=== PATIENT | female | born 1935 | race Caucasian/White ===

== ENCOUNTER 2016-09-16 12:31 | Outpatient (CLI) | payer OTHER ==
[2015-12-05 12:31] VITALS: BMI 44.9
[~2016-09-16 12:31] MED LIST: ALLO100T PO; ARI1 PO; ASPI-1063 PO; ASPI81TA2 PO; ATOR40TA68 PO; CALC-507 PO; CITR15SO PO; DENOSUMAB IM; DILT180C69 PO; DOXE1CAP PO; FURO80TA3 PO; FURO80TA86 PO; GABA-531 PO; HYDR1TAB4 PO; INSU100V9 SQ; INSU100V9 SUBCUT; IRON1CAP17 PO; LEVO175T2 PO; LORA-258 PO; LYR50 PO; MULT-1164 PO; OMEP20CA10 PO; OMEP20CA4 PO; PARI1CAP3 PO; PYRI100T2 PO; RALO60TA PO; SSNOVOLOG SUBCUT; [UNRECOGNIZED DRUG - OTHER] IM; [UNRECOGNIZED DRUG - OTHER] PO
[2017-02-18] MEDS ORDERED: VANC125C10 PO ×2 (07:54→18:57)
[2017-02-18] MEDS ORDERED: INSU100V11 SUBCUT (07:54)
[2017-02-18] MEDS ORDERED: INSU100V11 SQ (18:56)
== END 2016-09-16 19:56 | disposition home or self-care (01) ==
LOC: SRD 12:31
DX: M47.894 Other spondylosis, thoracic region (principal); I51.7 Cardiomegaly; I70.90 Unspecified atherosclerosis
CPT/HCPCS: 72072-TC

== ENCOUNTER 2017-02-08 16:07 | Inpatient (IN) | payer OTHER ==
[~2017-02-08] VITALS: Ht 152.4 cm; Wt 88.9 kg
[~2017-02-08 16:07] MED LIST changes: -ALLO100T PO; -ASPI-1063 PO; -DOXE1CAP PO; -FURO80TA86 PO; -INSU100V9 SQ; -LYR50 PO; -OMEP20CA4 PO; -RALO60TA PO; -[UNRECOGNIZED DRUG - OTHER] PO
[2017-02-08 16:10] VITALS: BP_SYST 182
[2017-02-08] MEDS ORDERED: ONDANSETRON HCL 4 MG/2 ML VIAL IVP ONE ×3 (16:15→18:30)
[2017-02-08 16:57] LABS: BASOPHILS # (AUTO) 0.2 K/uL (0.0-0.2); BASOPHILS % (AUTO) 1.2 % (0.0-2.0); HEMOGLOBIN 11.8 g/dL (12.0-16.0); LYMPHOCYTES # (AUTO) 0.7 K/uL (1.0-5.5); LYMPHOCYTES % (AUTO) 3.8 % (20.5-51.5); MEAN CORPUSCULAR HEMOGLOBIN 31 pg (27-31); MEAN CORPUSCULAR HGB CONC 33 % (32-36); MEAN CORPUSCULAR VOLUME 93 fL (79.0-98.0); MONOCYTES # (AUTO) 0.5 K/uL (0.0-1.0); MONOCYTES % (AUTO) 2.6 % (1.7-9.3); NEUTROPHILS # (AUTO) 16.7 K/uL (1.8-7.7); NEUTROPHILS % (AUTO) 92.4 % (40.0-70.0); PLATELET COUNT (AUTO) 267 K/uL (130-430); RED BLOOD CELL COUNT(AUTO) 3.88 MIL/uL (4.2-6.2); WHITE BLOOD COUNT (AUTO) 18.1 K/uL (4.8-10.8)
[2017-02-08 17:12] LABS: PROTHROMBIN TIME 11.2 SECS (9.5-12.5)
[2017-02-08 17:13] LABS: ANION GAP 14 (5-15); CALCIUM 10.7 mg/dL (8.4-11.0); CHLORIDE 99 mmol/L (98-107); CREATININE 2.85 mg/dL (0.55-1.30); POTASSIUM 4.4 mmol/L (3.5-5.1); SODIUM SERUM 137 mmol/L (136-145); UREA NITROGEN, BLOOD 51 mg/dL (8-21)
[2017-02-08 17:17] LABS: GLUCOSE 471 mg/dL (70-99)
[2017-02-08 17:24] LABS: ASPARTATE AMINOTRANSFERASE 19 U/L (10-37)
[2017-02-08 17:25] LABS: ALANINE AMINOTRANSFERASE 17 U/L (12-78); ALBUMIN 3.7 g/dL (3.4-4.8); TOTAL PROTEIN, SERUM 7.5 g/dL (6.4-8.3)
[2017-02-08] MEDS ORDERED: cefTRIAXone 1 GM IVPB PREMIX 50 ML IV ONE (17:45)
[2017-02-08] MEDS ORDERED: INSULIN REGULAR, HUMAN 10 UNITS/0.1 ML INJ IVP ONE (18:00)
[2017-02-08 18:02] LABS: BILIRUBIN,URINE NEGATIVE (NEGATIVE); BLOOD, URINE 2+ (NEGATIVE); CLARITY/URINE SL HAZY (CLEAR); COLOR,URINE YELLOW (YELLOW); GLUCOSE,URINE 3+ (NEGATIVE); KETONES,URINE 1+ (NEGATIVE); LEUKOCYTE ESTERASE ,URINE NEGATIVE (NEGATIVE); NITRITE, URINE NEGATIVE (NEGATIVE); PROTEIN URINE 3+ (NEGATIVE); UROBILINOGEN,URINE 0.2 (0.2-1.0)
[2017-02-08 18:12] LABS: BACTERIA,URINE MANY /HPF (None Seen); RBC,URINE 0-3 /HPF (0-3); WBC,URINE 50-80 /HPF (0-3)
[2017-02-08 18:13] LABS: MUCUS,URINE None Seen /LPF (None Seen); URINE AMORPHOUS URATE 1+ /HPF (None Seen)
[2017-02-08] MEDS ORDERED: ACETAMINOPHEN 325 MG TABLET PO PRN (19:45)
[2017-02-08 21:09] VITALS: BP_SYST 182
[2017-02-08] MEDS ORDERED: INSULIN ASPART 100 UNITS/ML, 10 ML VIAL SUBCUT ONE (23:30)
[2017-02-08] MEDS ORDERED: FUROSEMIDE 80 MG TABLET PO SCH (23:30)
[2017-02-08] MEDS ORDERED: GABAPENTIN 300 MG CAPSULE PO ONE (23:45)
[2017-02-08] MEDS ORDERED: DILTIAZEM HCL 180 MG CAP.SR.24H PO ONE (23:45)
[2017-02-09] MEDS: ONDANSETRON HCL 4 MG/2 ML VIAL IVP PRN ×3 (02:09→19:43)
[2017-02-09 02:14] VITALS: BP_SYST 158
[2017-02-09] MEDS: cloNIDine HCL 0.1 MG TABLET PO PRN (05:10)
[2017-02-09] MEDS: INSULIN ASPART 100 UNITS/ML, 10 ML VIAL (NovoLOG) SUBCUT PRN ×3 (06:15→22:00)
[2017-02-09 07:00] LABS: BASOPHILS # (AUTO) 0.3 K/uL (0.0-0.2); HEMATOCRIT 37.6 % (36-48); HEMOGLOBIN 12.3 g/dL (12.0-16.0); LYMPHOCYTES # (AUTO) 0.6 K/uL (1.0-5.5); LYMPHOCYTES % (AUTO) 4.4 % (20.5-51.5); MEAN CORPUSCULAR HEMOGLOBIN 31 pg (27-31); MEAN CORPUSCULAR HGB CONC 33 % (32-36); MEAN CORPUSCULAR VOLUME 94 fL (79.0-98.0); MONOCYTES % (AUTO) 7.2 % (1.7-9.3); NEUTROPHILS # (AUTO) 11.5 K/uL (1.8-7.7); NEUTROPHILS % (AUTO) 86.4 % (40.0-70.0); PLATELET COUNT (AUTO) 296 K/uL (130-430); RED BLOOD CELL COUNT(AUTO) 4.01 MIL/uL (4.2-6.2); RED CELL DISTRIBUTION WIDTH 14.2 % (9.0-15.0); WHITE BLOOD COUNT (AUTO) 13.4 K/uL (4.8-10.8)
[2017-02-09 07:20] LABS: ALANINE AMINOTRANSFERASE 16 U/L (12-78); ALBUMIN 3.3 g/dL (3.4-4.8); ANION GAP 8 (5-15); ASPARTATE AMINOTRANSFERASE 19 U/L (10-37); CALCIUM 10.3 mg/dL (8.4-11.0); CHLORIDE 104 mmol/L (98-107); CREATININE 2.96 mg/dL (0.55-1.30); GLUCOSE 305 mg/dL (70-99); POTASSIUM 4.1 mmol/L (3.5-5.1); SODIUM SERUM 142 mmol/L (136-145); TOTAL BILIRUBIN 0.6 mg/dL (0.0-1.0); TOTAL PROTEIN, SERUM 7.1 g/dL (6.4-8.3); UREA NITROGEN, BLOOD 54 mg/dL (8-21)
[2017-02-09 08:00] VITALS: BP_SYST 133
[2017-02-09] MEDS ORDERED: NON-FORMULARY MEDICATION (Levothyroxine Sodium (Synthroid) 175 MCG) PO SCH (09:00)
[2017-02-09] MEDS ORDERED: CITRIC ACID/SODIUM CITRATE 30 ML UDC PO SCH (09:00)
[2017-02-09] MEDS ORDERED: [UNRECOGNIZED DRUG - MIXTURE] PO SCH (09:00)
[2017-02-09] MEDS: GABAPENTIN 300 MG CAPSULE PO SCH ×2 (10:15→21:10)
[2017-02-09] MEDS: ANASTROZOLE 1 MG TABLET (ARIMIDEX) PO SCH (10:15)
[2017-02-09] MEDS: ASPIRIN 81 MG TAB.CHEW PO SCH (10:15)
[2017-02-09] MEDS: LEVOTHYROXINE SODIUM 0.075 MG TABLET PO SCH (10:15)
[2017-02-09] MEDS: LEVOTHYROXINE SODIUM 0.1 MG TABLET PO SCH (10:15)
[2017-02-09] MEDS: ATORVASTATIN 20 MG TABLET PO SCH (10:16)
[2017-02-09 12:00] VITALS: BP_SYST 130
[2017-02-09 16:00] VITALS: BP_SYST 151
[2017-02-09] MEDS ORDERED: LACTOBACILLUS RHAMNOSUS GG 1 CAP CAPSULE PO ONE (16:15)
[2017-02-09] MEDS ORDERED: TOBR5DRO48 OP (17:50)
[2017-02-09 19:40] VITALS: BP_SYST 194
[2017-02-09] MEDS: cefTRIAXone 1 GM IVPB PREMIX 50 ML IV SCH (21:10)
[2017-02-09] MEDS: metroNIDAZOLE 500 MG TABLET PO SCH (21:10)
[2017-02-09] MEDS: LACTOBACILLUS RHAMNOSUS GG 1 CAP CAPSULE PO SCH (21:11)
[2017-02-09] MEDS: DILTIAZEM HCL 180 MG CAP.SR.24H PO SCH (21:11)
[2017-02-09] MEDS: PROMETHAZINE HCL 25 MG/ML AMP IVP PRN (22:06)
[2017-02-10] MEDS: cloNIDine HCL 0.1 MG TABLET PO PRN (00:17)
[2017-02-10] MEDS: LORazepam 1 MG TABLET PO PRN (00:17)
[2017-02-10] MEDS: PROMETHAZINE HCL 25 MG/ML AMP IVP PRN ×3 (00:23→06:25)
[2017-02-10 01:26] VITALS: BP_SYST 192
[2017-02-10 03:37] VITALS: BP_SYST 166
[2017-02-10] MEDS: metroNIDAZOLE 500 MG TABLET PO SCH ×3 (06:24→22:25)
[2017-02-10] MEDS: LEVOTHYROXINE SODIUM 0.075 MG TABLET PO SCH (06:25)
[2017-02-10] MEDS: LEVOTHYROXINE SODIUM 0.1 MG TABLET PO SCH (06:25)
[2017-02-10 08:00] VITALS: BP_SYST 154
[2017-02-10] MEDS: GABAPENTIN 300 MG CAPSULE PO SCH ×2 (08:56→22:26)
[2017-02-10] MEDS: ATORVASTATIN 20 MG TABLET PO SCH (08:56)
[2017-02-10] MEDS: ANASTROZOLE 1 MG TABLET (ARIMIDEX) PO SCH (08:56)
[2017-02-10] MEDS: LACTOBACILLUS RHAMNOSUS GG 1 CAP CAPSULE PO SCH ×2 (08:56→22:26)
[2017-02-10] MEDS: ASPIRIN 81 MG TAB.CHEW PO SCH (08:56)
[2017-02-10] MEDS: CALCIUM CARBONATE/VITAMIN D3 1 TAB TABLET PO SCH ×2 (08:57→22:26)
[2017-02-10] MEDS: INSULIN ASPART 100 UNITS/ML, 10 ML VIAL (NovoLOG) SUBCUT PRN ×2 (11:11→22:31)
[2017-02-10 12:37] VITALS: BP_SYST 159
[2017-02-10 16:52] VITALS: BP_SYST 148
[2017-02-10 20:00] VITALS: BP_SYST 159
[2017-02-10] MEDS: cefTRIAXone 1 GM IVPB PREMIX 50 ML IV SCH (22:24)
[2017-02-10] MEDS: DILTIAZEM HCL 180 MG CAP.SR.24H PO SCH (22:25)
[2017-02-11] VITALS (7 sets, daily range): BP systolic 142–191
[2017-02-11] MEDS: metroNIDAZOLE 500 MG TABLET PO SCH (06:26)
[2017-02-11] MEDS: LEVOTHYROXINE SODIUM 0.075 MG TABLET PO SCH (06:26)
[2017-02-11] MEDS: LEVOTHYROXINE SODIUM 0.1 MG TABLET PO SCH (06:26)
[2017-02-11] MEDS: LACTOBACILLUS RHAMNOSUS GG 1 CAP CAPSULE PO SCH ×2 (08:40→22:22)
[2017-02-11] MEDS: CALCIUM CARBONATE/VITAMIN D3 1 TAB TABLET PO SCH ×2 (08:40→22:22)
[2017-02-11] MEDS: ANASTROZOLE 1 MG TABLET (ARIMIDEX) PO SCH (08:40)
[2017-02-11] MEDS: ASPIRIN 81 MG TAB.CHEW PO SCH (08:40)
[2017-02-11] MEDS: ATORVASTATIN 20 MG TABLET PO SCH (08:40)
[2017-02-11] MEDS: GABAPENTIN 300 MG CAPSULE PO SCH ×2 (08:41→22:22)
[2017-02-11] MEDS: cloNIDine HCL 0.1 MG TABLET PO PRN (08:41)
[2017-02-11] MEDS: HYDROcodone/ACETAMIN 7.5-325 MG TAB PO PRN ×2 (11:32→22:32)
[2017-02-11] MEDS: INSULIN ASPART 100 UNITS/ML, 10 ML VIAL (NovoLOG) SUBCUT PRN ×2 (11:37→22:29)
[2017-02-11] MEDS: VANCOMYCIN HCL 125 MG CAPSULE PO SCH ×3 (14:26→22:22)
[2017-02-11] MEDS ORDERED: ACETAMINOPHEN 325 MG TABLET PO PRN (16:00)
[2017-02-11] MEDS: metroNIDAZOLE 250 mg/NS 50 ML IV SCH ×2 (17:23→23:49)
[2017-02-11] MEDS ORDERED: VANCOMYCIN HCL 1 GM/NS PREMIX 250 ML IV ONE (17:45)
[2017-02-11] MEDS: cefTRIAXone 1 GM IVPB PREMIX 50 ML IV SCH (22:19)
[2017-02-11] MEDS: DILTIAZEM HCL 180 MG CAP.SR.24H PO SCH (22:20)
[2017-02-11] MEDS: CITRIC ACID/SODIUM CITRATE 30 ML UDC PO SCH (22:21)
[2017-02-12] VITALS (7 sets, daily range): BP systolic 142–186
[2017-02-12] MEDS: cloNIDine HCL 0.1 MG TABLET PO PRN ×2 (00:28→15:18)
[2017-02-12] MEDS: LEVOTHYROXINE SODIUM 0.1 MG TABLET PO SCH (06:08)
[2017-02-12] MEDS: LEVOTHYROXINE SODIUM 0.075 MG TABLET PO SCH (06:08)
[2017-02-12] MEDS: metroNIDAZOLE 250 mg/NS 50 ML IV SCH ×3 (06:09→22:38)
[2017-02-12] MEDS: INSULIN ASPART 100 UNITS/ML, 10 ML VIAL (NovoLOG) SUBCUT PRN ×3 (06:11→21:18)
[2017-02-12 06:33] LABS: BASOPHILS # (AUTO) 0.1 K/uL (0.0-0.2); EOSINOPHILS # (AUTO) 0.2 K/uL (0.0-0.4); LYMPHOCYTES # (AUTO) 1.3 K/uL (1.0-5.5); MONOCYTES # (AUTO) 0.7 K/uL (0.0-1.0)
[2017-02-12 06:44] LABS: BASOPHILS % (AUTO) 1.5 % (0.0-2.0); EOSINOPHILS % (AUTO) 2.5 % (0.0-4.0); HEMATOCRIT 32.3 % (36-48); HEMOGLOBIN 10.6 g/dL (12.0-16.0); LYMPHOCYTES % (AUTO) 15.5 % (20.5-51.5); MEAN CORPUSCULAR HEMOGLOBIN 30 pg (27-31); MEAN CORPUSCULAR HGB CONC 33 % (32-36); MEAN CORPUSCULAR VOLUME 92 fL (79.0-98.0); MONOCYTES % (AUTO) 8.8 % (1.7-9.3); NEUTROPHILS # (AUTO) 5.8 K/uL (1.8-7.7); NEUTROPHILS % (AUTO) 71.7 % (40.0-70.0); PLATELET COUNT (AUTO) 188 K/uL (130-430); RED BLOOD CELL COUNT(AUTO) 3.51 MIL/uL (4.2-6.2); RED CELL DISTRIBUTION WIDTH 13.2 % (9.0-15.0); WHITE BLOOD COUNT (AUTO) 8.1 K/uL (4.8-10.8)
[2017-02-12 06:47] LABS: ANION GAP 1 (5-15); CALCIUM 9.7 mg/dL (8.4-11.0); CHLORIDE 108 mmol/L (98-107); CREATININE 2.35 mg/dL (0.55-1.30); GLUCOSE 233 mg/dL (70-99); POTASSIUM 4.4 mmol/L (3.5-5.1); SODIUM SERUM 142 mmol/L (136-145); UREA NITROGEN, BLOOD 46 mg/dL (8-21)
[2017-02-12] MEDS: GABAPENTIN 300 MG CAPSULE PO SCH ×2 (08:26→21:11)
[2017-02-12] MEDS: cloNIDine HCL 0.1 MG TABLET PO SCH ×2 (08:27→21:14)
[2017-02-12] MEDS: ATORVASTATIN 20 MG TABLET PO SCH (08:27)
[2017-02-12] MEDS: ANASTROZOLE 1 MG TABLET (ARIMIDEX) PO SCH (08:28)
[2017-02-12] MEDS: LACTOBACILLUS RHAMNOSUS GG 1 CAP CAPSULE PO SCH ×2 (08:28→21:11)
[2017-02-12] MEDS: ASPIRIN 81 MG TAB.CHEW PO SCH (08:28)
[2017-02-12] MEDS: FUROSEMIDE 80 MG TABLET PO SCH (08:28)
[2017-02-12] MEDS: CALCIUM CARBONATE/VITAMIN D3 1 TAB TABLET PO SCH ×2 (08:28→21:14)
[2017-02-12] MEDS: VANCOMYCIN HCL 125 MG CAPSULE PO SCH ×4 (08:28→21:29)
[2017-02-12] MEDS: CITRIC ACID/SODIUM CITRATE 30 ML UDC PO SCH ×3 (08:38→21:15)
[2017-02-12] MEDS: FERREX PO SCH (09:00)
[2017-02-12] MEDS: DILTIAZEM HCL 180 MG CAP.SR.24H PO SCH (21:12)
[2017-02-12] MEDS: HYDROcodone/ACETAMIN 7.5-325 MG TAB PO PRN (21:14)
[2017-02-13] VITALS (7 sets, daily range): BP systolic 111–173
[2017-02-13] MEDS: metroNIDAZOLE 250 mg/NS 50 ML IV SCH ×3 (06:14→21:25)
[2017-02-13] MEDS: LEVOTHYROXINE SODIUM 0.075 MG TABLET PO SCH (07:28)
[2017-02-13] MEDS: LEVOTHYROXINE SODIUM 0.1 MG TABLET PO SCH (07:30)
[2017-02-13] MEDS: VANCOMYCIN HCL 125 MG CAPSULE PO SCH ×4 (09:00→20:58)
[2017-02-13] MEDS: CITRIC ACID/SODIUM CITRATE 30 ML UDC PO SCH ×3 (09:00→20:57)
[2017-02-13] MEDS: FUROSEMIDE 80 MG TABLET PO SCH (09:27)
[2017-02-13] MEDS: ASPIRIN 81 MG TAB.CHEW PO SCH (09:27)
[2017-02-13] MEDS: ANASTROZOLE 1 MG TABLET (ARIMIDEX) PO SCH (09:27)
[2017-02-13] MEDS: cloNIDine HCL 0.1 MG TABLET PO SCH ×2 (09:27→20:58)
[2017-02-13] MEDS: GABAPENTIN 300 MG CAPSULE PO SCH ×2 (09:28→20:57)
[2017-02-13] MEDS: LACTOBACILLUS RHAMNOSUS GG 1 CAP CAPSULE PO SCH ×2 (09:28→20:57)
[2017-02-13] MEDS: ATORVASTATIN 20 MG TABLET PO SCH (09:28)
[2017-02-13] MEDS: CALCIUM CARBONATE/VITAMIN D3 1 TAB TABLET PO SCH ×2 (09:28→20:57)
[2017-02-13] MEDS: FERREX PO SCH (09:29)
[2017-02-13] MEDS: INSULIN ASPART 100 UNITS/ML, 10 ML VIAL (NovoLOG) SUBCUT PRN ×3 (14:09→21:04)
[2017-02-13] MEDS: DILTIAZEM HCL 180 MG CAP.SR.24H PO SCH (21:00)
[2017-02-14] MEDS: cloNIDine HCL 0.1 MG TABLET PO PRN (00:13)
[2017-02-14] MEDS: LORazepam 1 MG TABLET PO PRN (00:14)
[2017-02-14 04:47] VITALS: BP_SYST 155
[2017-02-14] MEDS: metroNIDAZOLE 250 mg/NS 50 ML IV SCH ×3 (05:49→21:53)
[2017-02-14] MEDS: LEVOTHYROXINE SODIUM 0.1 MG TABLET PO SCH (06:15)
[2017-02-14] MEDS: LEVOTHYROXINE SODIUM 0.075 MG TABLET PO SCH (06:15)
[2017-02-14 08:06] LABS: BASOPHILS % (AUTO) 0.5 % (0.0-2.0); EOSINOPHILS # (AUTO) 0.2 K/uL (0.0-0.4); HEMATOCRIT 32.4 % (36-48); HEMOGLOBIN 10.4 g/dL (12.0-16.0); LYMPHOCYTES % (AUTO) 11.1 % (20.5-51.5); MEAN CORPUSCULAR HEMOGLOBIN 30 pg (27-31); MEAN CORPUSCULAR HGB CONC 32 % (32-36); MEAN CORPUSCULAR VOLUME 93 fL (79.0-98.0); MONOCYTES # (AUTO) 0.8 K/uL (0.0-1.0); MONOCYTES % (AUTO) 8.8 % (1.7-9.3); NEUTROPHILS # (AUTO) 7.2 K/uL (1.8-7.7); NEUTROPHILS % (AUTO) 77.6 % (40.0-70.0); PLATELET COUNT (AUTO) 156 K/uL (130-430); RED CELL DISTRIBUTION WIDTH 13.3 % (9.0-15.0); WHITE BLOOD COUNT (AUTO) 9.2 K/uL (4.8-10.8)
[2017-02-14 08:07] LABS: ANION GAP 1 (5-15); CALCIUM 10.3 mg/dL (8.4-11.0); CHLORIDE 102 mmol/L (98-107); GLUCOSE 112 mg/dL (70-99); POTASSIUM 3.4 mmol/L (3.5-5.1); SODIUM SERUM 140 mmol/L (136-145); UREA NITROGEN, BLOOD 37 mg/dL (8-21)
[2017-02-14] MEDS: FERREX PO SCH (09:00)
[2017-02-14] MEDS: CITRIC ACID/SODIUM CITRATE 30 ML UDC PO SCH ×3 (09:02→21:52)
[2017-02-14] MEDS: ANASTROZOLE 1 MG TABLET (ARIMIDEX) PO SCH (09:02)
[2017-02-14] MEDS: CALCIUM CARBONATE/VITAMIN D3 1 TAB TABLET PO SCH ×2 (09:03→21:38)
[2017-02-14] MEDS: cloNIDine HCL 0.1 MG TABLET PO SCH ×2 (09:03→21:37)
[2017-02-14] MEDS: FUROSEMIDE 80 MG TABLET PO SCH (09:03)
[2017-02-14] MEDS: ASPIRIN 81 MG TAB.CHEW PO SCH (09:03)
[2017-02-14] MEDS: GABAPENTIN 300 MG CAPSULE PO SCH ×2 (09:03→21:37)
[2017-02-14] MEDS: LACTOBACILLUS RHAMNOSUS GG 1 CAP CAPSULE PO SCH ×2 (09:03→21:37)
[2017-02-14] MEDS: VANCOMYCIN HCL 125 MG CAPSULE PO SCH ×4 (09:04→21:52)
[2017-02-14] MEDS: ATORVASTATIN 20 MG TABLET PO SCH (09:04)
[2017-02-14 09:33] VITALS: BP_SYST 135
[2017-02-14] MEDS: INSULIN ASPART 100 UNITS/ML, 10 ML VIAL (NovoLOG) SUBCUT PRN ×2 (11:45→17:48)
[2017-02-14 12:09] VITALS: BP_SYST 149
[2017-02-14 16:05] VITALS: BP_SYST 138
[2017-02-14 20:00] VITALS: BP_SYST 177
[2017-02-14] MEDS: DILTIAZEM HCL 180 MG CAP.SR.24H PO SCH (21:38)
[2017-02-14] MEDS: HYDROcodone/ACETAMIN 7.5-325 MG TAB PO PRN (22:40)
[2017-02-15] VITALS (7 sets, daily range): BP systolic 111–180
[2017-02-15] MEDS: cloNIDine HCL 0.1 MG TABLET PO PRN (04:19)
[2017-02-15] MEDS: metroNIDAZOLE 250 mg/NS 50 ML IV SCH (05:12)
[2017-02-15] MEDS: INSULIN ASPART 100 UNITS/ML, 10 ML VIAL (NovoLOG) SUBCUT PRN ×2 (06:47→11:52)
[2017-02-15] MEDS: LEVOTHYROXINE SODIUM 0.1 MG TABLET PO SCH (07:00)
[2017-02-15] MEDS: LEVOTHYROXINE SODIUM 0.075 MG TABLET PO SCH (07:00)
[2017-02-15] MEDS: HYDROcodone/ACETAMIN 7.5-325 MG TAB PO PRN (07:02)
[2017-02-15] MEDS: CITRIC ACID/SODIUM CITRATE 30 ML UDC PO SCH ×2 (09:00→15:17)
[2017-02-15] MEDS: LACTOBACILLUS RHAMNOSUS GG 1 CAP CAPSULE PO SCH (11:04)
[2017-02-15] MEDS: GABAPENTIN 300 MG CAPSULE PO SCH (11:05)
[2017-02-15] MEDS: FUROSEMIDE 80 MG TABLET PO SCH (11:05)
[2017-02-15] MEDS: CALCIUM CARBONATE/VITAMIN D3 1 TAB TABLET PO SCH (11:05)
[2017-02-15] MEDS: ATORVASTATIN 20 MG TABLET PO SCH (11:05)
[2017-02-15] MEDS: VANCOMYCIN HCL 125 MG CAPSULE PO SCH (11:07)
[2017-02-15] MEDS: cloNIDine HCL 0.1 MG TABLET PO SCH (11:07)
[2017-02-15] MEDS: ASPIRIN 81 MG TAB.CHEW PO SCH (11:07)
[2017-02-15] MEDS: ANASTROZOLE 1 MG TABLET (ARIMIDEX) PO SCH (11:08)
[2017-02-15] MEDS: FERREX PO SCH (11:12)
[2017-02-15] MEDS ORDERED: KCL 20 mEq in 100 mL (PREMIX) 100 ML IV ONE (15:00)
[2017-02-15] MEDS: PROMETHAZINE HCL 25 MG/ML AMP IVP PRN (19:48)
[2017-02-15] MEDS ORDERED: LINEZOLID 300 ML IV SCH (21:00)
[2017-02-18] MEDS ORDERED: VANC125C10 PO ×2 (07:54→18:57)
[2017-02-18] MEDS ORDERED: INSU100V11 SUBCUT (07:54)
[2017-02-18] MEDS ORDERED: INSU100V11 SQ (18:56)
== END 2017-02-15 21:00 | disposition home or self-care (01) | DRG 372 ==
LOC: SED 16:07 → SMU 19:34
PROVIDERS: ADMIT Internal Medicine; ATTEND Internal Medicine
DX: A04.7 Enterocolitis due to Clostridium difficile (principal); N12 Tubulo-interstitial nephritis, not specified as acute or chronic; N17.9 Acute kidney failure, unspecified; H54.41 Blindness, right eye, normal vision left eye; E03.9 Hypothyroidism, unspecified; I12.9 Hypertensive chronic kidney disease with stage 1 through stage 4 chronic kidney disease, or unspecified chronic kidney disease; E11.22 Type 2 diabetes mellitus with diabetic chronic kidney disease; N18.3 Chronic kidney disease, stage 3 (moderate); B95.62 Methicillin resistant Staphylococcus aureus infection as the cause of diseases classified elsewhere; E66.01 Morbid (severe) obesity due to excess calories; Z88.1 Allergy status to other antibiotic agents; Z88.5 Allergy status to narcotic agent; Z88.2 Allergy status to sulfonamides; Z88.8 Allergy status to other drugs, medicaments and biological substances; Z79.899 Other long term (current) drug therapy; Z79.82 Long term (current) use of aspirin; Z79.4 Long term (current) use of insulin; Z85.3 Personal history of malignant neoplasm of breast; Z86.73 Personal history of transient ischemic attack (TIA), and cerebral infarction without residual deficits; Z68.38 Body mass index [BMI] 38.0-38.9, adult; Z90.11 Acquired absence of right breast and nipple; E11.65 Type 2 diabetes mellitus with hyperglycemia
CPT/HCPCS: 36415; 71010; 80048; 80053; 81000-TC; 82962; 83880; 84484; 85025; 85610-TC; 85730-TC; 87086; 87186-TC; 87230-TC; 93005; 96365; 96367; 96375; 99285; J0696; J1815; J1956; J2020; J2405; J2550; J3370; J3490; J7050

== ENCOUNTER 2017-03-01 08:16 | Inpatient (IN) | payer OTHER ==
[~2017-03-01] VITALS: Ht 160 cm; Wt 111.6 kg
[~2017-03-01 08:16] MED LIST changes: +INSU100V11 SQ; -INSU100V9 SUBCUT; +TOBR5DRO48 OP; +VANC125C10 PO
[2017-03-01 08:20] VITALS: BP_SYST 129
[2017-03-01] MEDS ORDERED: NACL 0.9% 1,000 ML IV ONE (09:00)
[2017-03-01 09:24] LABS: BASOPHILS # (AUTO) 0.1 K/uL (0.0-0.2); BASOPHILS % (AUTO) 0.6 % (0.0-2.0); EOSINOPHILS # (AUTO) 0.1 K/uL (0.0-0.4); EOSINOPHILS % (AUTO) 0.6 % (0.0-4.0); HEMATOCRIT 33.7 % (36-48); HEMOGLOBIN 10.9 g/dL (12.0-16.0); LYMPHOCYTES # (AUTO) 0.6 K/uL (1.0-5.5); LYMPHOCYTES % (AUTO) 6.3 % (20.5-51.5); MEAN CORPUSCULAR HEMOGLOBIN 31 pg (27-31); MEAN CORPUSCULAR HGB CONC 32 % (32-36); MEAN CORPUSCULAR VOLUME 95 fL (79.0-98.0); MONOCYTES # (AUTO) 0.3 K/uL (0.0-1.0); MONOCYTES % (AUTO) 3.2 % (1.7-9.3); NEUTROPHILS # (AUTO) 7.7 K/uL (1.8-7.7); NEUTROPHILS % (AUTO) 89.3 % (40.0-70.0); PLATELET COUNT (AUTO) 238 K/uL (130-430); RED BLOOD CELL COUNT(AUTO) 3.56 MIL/uL (4.2-6.2); RED CELL DISTRIBUTION WIDTH 13.2 % (9.0-15.0); WHITE BLOOD COUNT (AUTO) 8.8 K/uL (4.8-10.8)
[2017-03-01 09:37] LABS: ANION GAP 15 (5-15); CALCIUM 9.5 mg/dL (8.4-11.0); CHLORIDE 88 mmol/L (98-107); CREATININE 2.67 mg/dL (0.55-1.30); POTASSIUM 4.5 mmol/L (3.5-5.1); PROTHROMBIN TIME 11.1 SECS (9.5-12.5); SODIUM SERUM 131 mmol/L (136-145); UREA NITROGEN, BLOOD 43 mg/dL (8-21)
[2017-03-01 09:39] LABS: ALANINE AMINOTRANSFERASE 14 U/L (12-78); ALBUMIN 2.8 g/dL (3.4-4.8); ASPARTATE AMINOTRANSFERASE 14 U/L (10-37); TOTAL BILIRUBIN 0.8 mg/dL (0.0-1.0); TOTAL PROTEIN, SERUM 6.6 g/dL (6.4-8.3)
[2017-03-01 09:56] LABS: GLUCOSE 794 mg/dL (70-99)
[2017-03-01 10:53] LABS: BILIRUBIN,URINE NEGATIVE (NEGATIVE); BLOOD, URINE 1+ (NEGATIVE); CLARITY/URINE HAZY (CLEAR); COLOR,URINE YELLOW (YELLOW); GLUCOSE,URINE 3+ (NEGATIVE); KETONES,URINE 1+ (NEGATIVE); LEUKOCYTE ESTERASE ,URINE NEGATIVE (NEGATIVE); NITRITE, URINE NEGATIVE (NEGATIVE); PH,URINE 5.5 (5.0-8.0); PROTEIN URINE 2+ (NEGATIVE); UROBILINOGEN,URINE 0.2 (0.2-1.0)
[2017-03-01 11:02] LABS: BACTERIA,URINE FEW /HPF (None Seen); RBC,URINE 0-3 /HPF (0-3); WBC,URINE 0-3 /HPF (0-3); YEAST,URINE Many /HPF (None Seen)
[2017-03-01 11:03] LABS: MUCUS,URINE None Seen /LPF (None Seen)
[2017-03-01 11:59] VITALS: BP_SYST 107
[2017-03-01] MEDS ORDERED: INSULIN REGULAR, HUMAN 100 UNITS/ML, 10 ML VIAL SUBCUT ONE ×2 (12:00→19:00)
[2017-03-01] MEDS ORDERED: DEXTROSE 50% JECT 50 ML DISP.SYRIN IVP PRN (12:00)
[2017-03-01] MEDS ORDERED: INSULIN REGULAR, HUMAN 100 UNITS/ML, 10 ML VIAL (novoLIN R) SUBCUT PRN ×2 (12:00→18:45)
[2017-03-01] MEDS: VANCOMYCIN HCL 125 MG CAPSULE PO SCH ×6 (13:00→20:16)
[2017-03-01] MEDS: NACL 0.9% 1,000 ML IV SCH ×2 (16:00→20:31)
[2017-03-01] MEDS: OMEPRAZOLE 20 MG CAPSULE.DR (PriLOSEC) PO SCH ×2 (16:00→17:00)
[2017-03-01 16:34] VITALS: BP_SYST 132
[2017-03-01 19:35] VITALS: BP_SYST 142
[2017-03-01] MEDS: DILTIAZEM HCL 180 MG CAP.SR.24H PO SCH (20:16)
[2017-03-02] VITALS: BP_SYST 138
[2017-03-02 04:22] VITALS: BP_SYST 141
[2017-03-02] MEDS: OMEPRAZOLE 20 MG CAPSULE.DR (PriLOSEC) PO SCH ×2 (05:40→18:13)
[2017-03-02 08:00] VITALS: BP_SYST 136
[2017-03-02] MEDS ORDERED: FUROSEMIDE 80 MG TABLET PO SCH (09:00)
[2017-03-02] MEDS: ATORVASTATIN 20 MG TABLET PO SCH (10:30)
[2017-03-02] MEDS: VANCOMYCIN HCL 125 MG CAPSULE PO SCH ×4 (10:31→21:28)
[2017-03-02] MEDS: ANASTROZOLE 1 MG TABLET (ARIMIDEX) PO SCH (10:31)
[2017-03-02] MEDS: ASPIRIN 81 MG TAB.CHEW PO SCH (10:31)
[2017-03-02] MEDS: GABAPENTIN 300 MG CAPSULE PO SCH (10:31)
[2017-03-02 11:40] VITALS: BP_SYST 188
[2017-03-02 11:41] LABS: BASOPHILS # (AUTO) 0.2 K/uL (0.0-0.2); BASOPHILS % (AUTO) 2.2 % (0.0-2.0); EOSINOPHILS # (AUTO) 0.1 K/uL (0.0-0.4); EOSINOPHILS % (AUTO) 1.1 % (0.0-4.0); HEMATOCRIT 30.5 % (36-48); HEMOGLOBIN 10.1 g/dL (12.0-16.0); LYMPHOCYTES % (AUTO) 12.3 % (20.5-51.5); MEAN CORPUSCULAR HEMOGLOBIN 31 pg (27-31); MEAN CORPUSCULAR HGB CONC 33 % (32-36); MEAN CORPUSCULAR VOLUME 93 fL (79.0-98.0); MONOCYTES # (AUTO) 0.4 K/uL (0.0-1.0); MONOCYTES % (AUTO) 5.4 % (1.7-9.3); NEUTROPHILS # (AUTO) 6.4 K/uL (1.8-7.7); PLATELET COUNT (AUTO) 248 K/uL (130-430); RED BLOOD CELL COUNT(AUTO) 3.28 MIL/uL (4.2-6.2); RED CELL DISTRIBUTION WIDTH 13.1 % (9.0-15.0); WHITE BLOOD COUNT (AUTO) 8.1 K/uL (4.8-10.8)
[2017-03-02 11:49] LABS: ANION GAP 6 (5-15); CALCIUM 9.1 mg/dL (8.4-11.0); CHLORIDE 96 mmol/L (98-107); CREATININE 2.77 mg/dL (0.55-1.30); GLUCOSE 240 mg/dL (70-99); SODIUM SERUM 137 mmol/L (136-145); UREA NITROGEN, BLOOD 45 mg/dL (8-21)
[2017-03-02 11:54] LABS: ALANINE AMINOTRANSFERASE 15 U/L (12-78); ALBUMIN 2.5 g/dL (3.4-4.8); ASPARTATE AMINOTRANSFERASE 19 U/L (10-37); TOTAL BILIRUBIN 0.4 mg/dL (0.0-1.0); TOTAL PROTEIN, SERUM 6.3 g/dL (6.4-8.3)
[2017-03-02] MEDS: LORazepam 1 MG TABLET PO PRN ×2 (12:33→23:41)
[2017-03-02] MEDS: NACL 0.9% 1,000 ML IV SCH (18:00)
[2017-03-02] MEDS ORDERED: INSULIN REGULAR, HUMAN 100 UNITS/ML, 10 ML VIAL (novoLIN R) SUBCUT PRN (19:45)
[2017-03-02] MEDS: D5NS 1,000 ML IV SCH (21:15)
[2017-03-02] MEDS: DILTIAZEM HCL 180 MG CAP.SR.24H PO SCH (21:28)
[2017-03-02 21:30] VITALS: BP_SYST 147
[2017-03-02] MEDS: HYDROcodone/ACETAMIN 7.5-325 MG TAB PO PRN (23:40)
[2017-03-03] VITALS (8 sets, daily range): BP systolic 129–192
[2017-03-03] MEDS: NACL 0.9% 1,000 ML IV SCH ×2 (04:00→14:00)
[2017-03-03] MEDS: OMEPRAZOLE 20 MG CAPSULE.DR (PriLOSEC) PO SCH ×2 (06:33→16:22)
[2017-03-03] MEDS: D5NS 1,000 ML IV SCH ×2 (06:33→17:15)
[2017-03-03] MEDS: cloNIDine HCL 0.1 MG TABLET PO PRN (08:48)
[2017-03-03] MEDS: ASPIRIN 81 MG TAB.CHEW PO SCH (09:00)
[2017-03-03] MEDS: ANASTROZOLE 1 MG TABLET (ARIMIDEX) PO SCH ×2 (09:00→13:06)
[2017-03-03] MEDS: VANCOMYCIN HCL 125 MG CAPSULE PO SCH ×4 (09:00→20:56)
[2017-03-03] MEDS: ATORVASTATIN 20 MG TABLET PO SCH (09:00)
[2017-03-03] MEDS: GABAPENTIN 300 MG CAPSULE PO SCH (09:00)
[2017-03-03] MEDS ORDERED: INSULIN REGULAR, HUMAN 100 UNITS/ML, 10 ML VIAL (novoLIN R) SUBCUT PRN (15:30)
[2017-03-03] MEDS ORDERED: FLUCONAZOLE 200 MG TABLET (DIFLUCAN) PO ONE (20:30)
[2017-03-03] MEDS: DILTIAZEM HCL 180 MG CAP.SR.24H PO SCH (20:55)
[2017-03-03] MEDS: HYDROcodone/ACETAMIN 7.5-325 MG TAB PO PRN (23:42)
[2017-03-04] MEDS: cloNIDine HCL 0.1 MG TABLET PO PRN (00:58)
[2017-03-04] MEDS: D5NS 1,000 ML IV SCH (03:15)
[2017-03-04 04:00] VITALS: BP_SYST 169
[2017-03-04] MEDS: HYDROcodone/ACETAMIN 7.5-325 MG TAB PO PRN (04:01)
[2017-03-04] MEDS: OMEPRAZOLE 20 MG CAPSULE.DR (PriLOSEC) PO SCH ×2 (06:13→17:01)
[2017-03-04] MEDS ORDERED: MORPHINE 2 MG/ML INJ. SYRINGE IVP PRN (07:00)
[2017-03-04] MEDS ORDERED: ONDANSETRON HCL 4 MG/2 ML VIAL IVP PRN (07:00)
[2017-03-04 07:07] LABS: BASOPHILS # (AUTO) 0.1 K/uL (0.0-0.2); BASOPHILS % (AUTO) 1.2 % (0.0-2.0); EOSINOPHILS # (AUTO) 0.3 K/uL (0.0-0.4); EOSINOPHILS % (AUTO) 4.1 % (0.0-4.0); HEMATOCRIT 30.4 % (36-48); HEMOGLOBIN 10.5 g/dL (12.0-16.0); LYMPHOCYTES # (AUTO) 1.2 K/uL (1.0-5.5); LYMPHOCYTES % (AUTO) 15.8 % (20.5-51.5); MEAN CORPUSCULAR HEMOGLOBIN 32 pg (27-31); MEAN CORPUSCULAR HGB CONC 34 % (32-36); MEAN CORPUSCULAR VOLUME 93 fL (79.0-98.0); MONOCYTES # (AUTO) 0.5 K/uL (0.0-1.0); MONOCYTES % (AUTO) 7.2 % (1.7-9.3); NEUTROPHILS # (AUTO) 5.4 K/uL (1.8-7.7); NEUTROPHILS % (AUTO) 71.7 % (40.0-70.0); PLATELET COUNT (AUTO) 270 K/uL (130-430); RED BLOOD CELL COUNT(AUTO) 3.27 MIL/uL (4.2-6.2); RED CELL DISTRIBUTION WIDTH 13.1 % (9.0-15.0); WHITE BLOOD COUNT (AUTO) 7.5 K/uL (4.8-10.8)
[2017-03-04 07:35] LABS: ALANINE AMINOTRANSFERASE 15 U/L (12-78); ALBUMIN 2.6 g/dL (3.4-4.8); ANION GAP 2 (5-15); ASPARTATE AMINOTRANSFERASE 19 U/L (10-37); CALCIUM 9.5 mg/dL (8.4-11.0); CHLORIDE 99 mmol/L (98-107); CREATININE 1.87 mg/dL (0.55-1.30); GLUCOSE 156 mg/dL (70-99); POTASSIUM 3.6 mmol/L (3.5-5.1); SODIUM SERUM 138 mmol/L (136-145); TOTAL BILIRUBIN 0.4 mg/dL (0.0-1.0); TOTAL PROTEIN, SERUM 6.3 g/dL (6.4-8.3); UREA NITROGEN, BLOOD 36 mg/dL (8-21)
[2017-03-04 08:29] VITALS: BP_SYST 160
[2017-03-04] MEDS: GABAPENTIN 300 MG CAPSULE PO SCH (09:35)
[2017-03-04] MEDS: FLUCONAZOLE 100 MG TABLET (DIFLUCAN) PO SCH (09:35)
[2017-03-04] MEDS: ATORVASTATIN 20 MG TABLET PO SCH (09:35)
[2017-03-04] MEDS: ASPIRIN 81 MG TAB.CHEW PO SCH (09:35)
[2017-03-04] MEDS: VANCOMYCIN HCL 125 MG CAPSULE PO SCH ×4 (09:35→23:15)
[2017-03-04] MEDS: ANASTROZOLE 1 MG TABLET (ARIMIDEX) PO SCH (09:35)
[2017-03-04 12:50] VITALS: BP_SYST 138
[2017-03-04 16:33] VITALS: BP_SYST 150
[2017-03-04] MEDS: NACL 0.9% 1,000 ML IV SCH ×3 (17:09→23:40)
[2017-03-04 20:00] VITALS: BP_SYST 147
[2017-03-04] MEDS: DILTIAZEM HCL 180 MG CAP.SR.24H PO SCH (23:39)
[2017-03-05 03:11] VITALS: BP_SYST 176
[2017-03-05] MEDS: NACL 0.9% 1,000 ML IV SCH (06:00)
[2017-03-05] MEDS: OMEPRAZOLE 20 MG CAPSULE.DR (PriLOSEC) PO SCH (06:22)
[2017-03-05 08:00] VITALS: BP_SYST 148
[2017-03-05] MEDS: ATORVASTATIN 20 MG TABLET PO SCH (10:28)
[2017-03-05] MEDS: ANASTROZOLE 1 MG TABLET (ARIMIDEX) PO SCH (10:29)
[2017-03-05] MEDS: GABAPENTIN 300 MG CAPSULE PO SCH (10:29)
[2017-03-05] MEDS: FLUCONAZOLE 100 MG TABLET (DIFLUCAN) PO SCH (10:29)
[2017-03-05] MEDS: VANCOMYCIN HCL 125 MG CAPSULE PO SCH (10:29)
[2017-03-05] MEDS: ASPIRIN 81 MG TAB.CHEW PO SCH (10:29)
[2017-03-05 12:09] VITALS: BP_SYST 175
[2017-03-05 12:44] VITALS: BP_SYST 146
== END 2017-03-05 13:37 | DRG 371 ==
LOC: SED 08:16 → SMU 10:59
PROVIDERS: ADMIT Internal Medicine Hospice and Palliative Medicine; ATTEND Internal Medicine Hospice and Palliative Medicine
DX: A04.7 Enterocolitis due to Clostridium difficile (principal); N17.0 Acute kidney failure with tubular necrosis; G93.41 Metabolic encephalopathy; Z68.41 Body mass index [BMI] 40.0-44.9, adult; E44.0 Moderate protein-calorie malnutrition; I13.0 Hypertensive heart and chronic kidney disease with heart failure and stage 1 through stage 4 chronic kidney disease, or unspecified chronic kidney disease; I50.32 Chronic diastolic (congestive) heart failure; B37.49 Other urogenital candidiasis; N18.4 Chronic kidney disease, stage 4 (severe); E11.65 Type 2 diabetes mellitus with hyperglycemia; E11.22 Type 2 diabetes mellitus with diabetic chronic kidney disease; E03.8 Other specified hypothyroidism; I49.9 Cardiac arrhythmia, unspecified; E11.21 Type 2 diabetes mellitus with diabetic nephropathy; E11.3599 Type 2 diabetes mellitus with proliferative diabetic retinopathy without macular edema, unspecified eye; E66.01 Morbid (severe) obesity due to excess calories; E78.00 Pure hypercholesterolemia, unspecified; E11.40 Type 2 diabetes mellitus with diabetic neuropathy, unspecified; R80.9 Proteinuria, unspecified; F03.90 Unspecified dementia, unspecified severity, without behavioral disturbance, psychotic disturbance, mood disturbance, and anxiety; H54.41 Blindness, right eye, normal vision left eye; E78.2 Mixed hyperlipidemia; I48.0 Paroxysmal atrial fibrillation; E86.0 Dehydration; M81.0 Age-related osteoporosis without current pathological fracture; Z79.4 Long term (current) use of insulin; Z90.11 Acquired absence of right breast and nipple; Z90.49 Acquired absence of other specified parts of digestive tract; Z85.3 Personal history of malignant neoplasm of breast; Z88.1 Allergy status to other antibiotic agents; Z88.5 Allergy status to narcotic agent; Z88.2 Allergy status to sulfonamides; Z88.8 Allergy status to other drugs, medicaments and biological substances; Z79.899 Other long term (current) drug therapy; Z79.82 Long term (current) use of aspirin; Z86.73 Personal history of transient ischemic attack (TIA), and cerebral infarction without residual deficits; R09.02 Hypoxemia; E11.649 Type 2 diabetes mellitus with hypoglycemia without coma
CPT/HCPCS: 36415; 70450-TC; 71010; 76700-TC; 78264-TC; 80053; 81000-TC; 82962; 83036; 84484; 85025; 85610-TC; 85730-TC; 87081; 87086; 93005; 93970; 96360; 99285; A9541; J1815; J2405; J7030